=== PATIENT | female | born 1945 | race African-American/Black ===

== ENCOUNTER 2017-01-01 13:22 | Emergency (ER) | payer MEDICARE ==
[~2017-01-01] VITALS: Ht 157.5 cm; Wt 65.8 kg
[~2017-01-01 13:22] MED LIST: ACET-704 PO; AMLO5TAB2 PO; ASPI81TA2 PO; CHOL500021 PO; CILO100T PO; CLOP75TA PO; LOSA100T6 PO; MELO-150 PO; METO50TA2 PO; OMEP20CA9 PO; POTA10TA5 PO; PRED20TA PO
[2017-01-01 13:30] VITALS: BP 122/59
[2017-01-01] MEDS ORDERED: DEXAMETHASONE SOD PHOS 20 MG/5 ML VIAL. IV ONE (14:15)
[2017-01-01] MEDS ORDERED: METH4TAB2 PO (14:16)
--- NOTE | 2017-01-01 14:17 | PHYS DOC ---
Past Medical History Past Medical History: CAD, Diverticulitis, Hypertension Additional Past Medical Histor: aortic aneurysm Past Surgical History: Coronary Bypass Surgery, Other Additional Past Surgical Histo: cardiac stent; Lt SFA; SMA endovascular sx Alcohol Use: None Drug Use: None Adult General Chief Complaint Chief Complaint: HIP PAIN HPI HPI Patient is a 71 year old male who presents with history of hypertension, diverticulitis, and CAD who presents today with right hip pain radiating to the right lower extremity. She states she has history of sciatica. She states she was seen by the PCP and the given a muscle relaxer. She states is not helping. Patient denies any injury. Patient denies any numbness or tingling to bilateral lower extremities. Denies any loss of bowel bladder function. Review of Systems Review of Systems Constitutional: Denies fever or chills [] Eyes: Denies change in visual acuity, redness, or eye pain [] HENT: Denies nasal congestion or sore throat [] GI: Denies abdominal pain, nausea, vomiting, bloody stools or diarrhea [] : Denies dysuria or hematuria [] Musculoskeletal: Right hip pain radiating to the right lower extremity Integument: Denies rash or skin lesions [] Neurologic: Denies headache, focal weakness or sensory changes [] Endocrine: Denies polyuria or polydipsia [] Allergies Allergies Allergies Coded Allergies Type Severity Reaction Last Updated Verified clonidine Allergy Mild Rash 05/13/15 Yes morphine Adverse Reaction Intermediate N/V 01/21/16 Yes tramadol HCl Adverse Reaction Intermediate confusion 01/21/16 Yes nitroglycerin Adverse Reaction Mild severe MOLINA 01/21/16 Yes oxycodone Adverse Reaction Mild Nausea and Vomiting 01/21/16 Yes Physical Exam Physical Exam Constitutional: Well developed, well nourished, no acute distress, non-toxic appearance. [] HENT: Normocephalic, atraumatic, bilateral external ears normal, oropharynx moist, no oral exudates, nose normal. [] Eyes: PERRLA, EOMI, conjunctiva normal, no discharge. [] Abdomen: Bowel sounds normal, soft, no tenderness, no masses, no pulsatile masses. [] Skin: Warm, dry, no erythema, no rash. [] Back: Tenderness on the right SI joint, no midline lumbar spine tenderness, no CVA tenderness. [] Extremities: No tenderness, no cyanosis, no clubbing, ROM intact, no edema. [] Neurologic: Alert and oriented X 3, normal motor function, normal sensory function, no focal deficits noted. [] Psychologic: Affect normal, judgement normal, mood normal. [] Current Patient Data Vital Signs Vital Signs Date Time Temp Pulse Resp B/P (MAP) Pulse Ox O2 Delivery O2 Flow Rate FiO2 01/01/17 13:30 97.8 61 16 100 Room Air 97.8 EKG EKG [] Radiology/Procedures Radiology/Procedures [] Course & Med Decision Making Course & Med Decision Making Pertinent Labs and Imaging studies reviewed. (See chart for details) Patient is in the ED with pain suspicious of sciatica. She has already been seen by the PCP and diagnosed with sciatica. She is on a muscle relaxer which is not helping. She is allergic to multiple medications including morphine and oxycodone and tramadol. She was given Decadron in the ED and discharged with Medrol Dosepak. Follow-up with her own PCP next week. Dragon Disclaimer Dragon Disclaimer This electronic medical record was generated, in whole or in part, using a voice recognition dictation system. Departure Departure Impression: Primary Impression: Sciatic leg pain Disposition: HOME, SELF-CARE Condition: STABLE Referrals: ALIE CHE MD (PCP) Follow-up with your doctor next week Patient Instructions: Sciatica, [id number] Additional Instructions: You were seen for sciatic nerve pain, take the prescribed medicines as ordered. Follow-up with your own doctor in one week. Scripts Methylprednisolone (MEDROL) 4 Mg Tab.ds.pk 1 PKG PO UD, #1 PKG Prov: RAHULEMMASIMI TWISTING FRAME FIXER 01/01/17 RAHULEMMASIMI TWISTING FRAME FIXER January 01, 2017 14:17
[2017-01-01] MEDS ORDERED: DEXAMETHASONE SOD PHOS 20 MG/5 ML VIAL. IM ONE (14:30)
== END 2017-01-01 14:30 | disposition home or self-care (01) ==
LOC: ER 13:22
DX: M54.31 Sciatica, right side (principal); I10 Essential (primary) hypertension; I25.10 Atherosclerotic heart disease of native coronary artery without angina pectoris; I71.9 Aortic aneurysm of unspecified site, without rupture; Z95.5 Presence of coronary angioplasty implant and graft; Z88.8 Allergy status to other drugs, medicaments and biological substances; Z88.5 Allergy status to narcotic agent
CPT/HCPCS: 96372; 99283; J1100

== ENCOUNTER 2017-01-24 10:13 | Emergency (ER) | payer MEDICARE ==
[~2017-01-24] VITALS: Ht 157.5 cm; Wt 65.8 kg
[~2017-01-24 10:13] MED LIST changes: +METH4TAB2 PO
--- NOTE | 2017-01-24 11:22 | PHYS DOC ---
Past Medical History Past Medical History: CAD, Diverticulitis, Hypertension Additional Past Medical Histor: aortic aneurysm Past Surgical History: Coronary Bypass Surgery, Other Additional Past Surgical Histo: cardiac stent; Lt SFA; SMA endovascular sx Alcohol Use: None Drug Use: None Adult General Chief Complaint Chief Complaint: UPPER EXTREMITY PAIN [facility] HPI Patient is a 71 year old female presents to the emergency department stating that 8 years ago today she suffered her first heart attack and had a CABG completed. Patient states that she is here to have her insulin signs checked. She is complaining of bilateral pain and states that it's a dull pain. She then states that she is having right upper chest pain and discomfort with radiation into the elbows. She states the pain is dull she has taken Daypro further pain and discomfort which is relieved some of the pain. She states the pain started approximately 2 days ago when she was outside gardening. She denies any shortness of air difficulty breathing. She denies any swelling in her lower extremities. Patient states that she does have rating specialist Dr. Marino in which she has seen a few days ago. Review of Systems Review of Systems Constitutional: Denies fever or chills [] Eyes: Denies change in visual acuity, redness, or eye pain [] HENT: Denies nasal congestion or sore throat [] Respiratory: Denies cough or shortness of breath [] Cardiovascular: No additional information not addressed in HPI [] GI: Denies abdominal pain, nausea, vomiting, bloody stools or diarrhea [] : Denies dysuria or hematuria [] Musculoskeletal: Denies back pain. C/o bilateral elbow pain Integument: Denies rash or skin lesions [] Neurologic: Denies headache, focal weakness or sensory changes [] Endocrine: Denies polyuria or polydipsia [] Allergies Allergies Allergies Coded Allergies Type Severity Reaction Last Updated Verified clonidine Allergy Mild Rash 05/13/15 Yes morphine Adverse Reaction Intermediate N/V 01/21/16 Yes tramadol HCl Adverse Reaction Intermediate confusion 01/21/16 Yes nitroglycerin Adverse Reaction Mild severe MOLINA 01/21/16 Yes oxycodone Adverse Reaction Mild Nausea and Vomiting 01/21/16 Yes Physical Exam Physical Exam Constitutional: Well developed, well nourished, no acute distress, non-toxic appearance. [] HENT: Normocephalic, atraumatic, bilateral external ears normal, oropharynx moist, no oral exudates, nose normal. [] Eyes: PERRLA, EOMI, conjunctiva normal, no discharge. [] Neck: Normal range of motion, no tenderness, supple, no stridor. [] Cardiovascular:Heart rate regular rhythm, no murmur [] Lungs & Thorax: Bilateral breath sounds clear to auscultation [] Skin: Warm, dry, no erythema, no rash. [] Back: No tenderness Extremities: Bilateral elbow tenderness, no cyanosis, no clubbing, ROM intact, no edema. Peripheral pulses plus cap refill brisk less than 2 seconds. Patient with full range of motion of the elbow areas. No discoloration or bruising noted. Neurologic: Alert and oriented X 3, normal motor function, normal sensory function, no focal deficits noted. [] Psychologic: Affect normal, judgement normal, mood normal. [] Current Patient Data Vital Signs Vital Signs Date Time Temp Pulse Resp B/P (MAP) Pulse Ox O2 Delivery O2 Flow Rate FiO2 01/24/17 10:26 98.6 54 20 164/73 (103) 98 Room Air 98.6 Lab Values Laboratory Tests Test 01/24/17 12:00 White Blood Count 7.3 x10^3/uL (4.0-11.0) Red Blood Count 3.67 x10^6/uL (3.50-5.40) Hemoglobin 11.4 g/dL (12.0-15.5) L Hematocrit 33.9 % (36.0-47.0) L Mean Corpuscular Volume 92 fL (79-100) Mean Corpuscular Hemoglobin 31 pg (25-35) Mean Corpuscular Hemoglobin Concent 34 g/dL (31-37) Red Cell Distribution Width 14.7 % (11.5-14.5) H Platelet Count 238 x10^3/uL (140-400) Neutrophils (%) (Auto) 61 % (31-73) Lymphocytes (%) (Auto) 30 % (24-48) Monocytes (%) (Auto) 6 % (0-9) Eosinophils (%) (Auto) 2 % (0-3) Basophils (%) (Auto) 1 % (0-3) Neutrophils # (Auto) 4.4 x10^3uL (1.8-7.7) Lymphocytes # (Auto) 2.2 x10^3/uL (1.0-4.8) Monocytes # (Auto) 0.5 x10^3/uL (0.0-1.1) Eosinophils # (Auto) 0.2 x10^3/uL (0.0-0.7) Basophils # (Auto) 0.0 x10^3/uL (0.0-0.2) Sodium Level 140 mmol/L (136-145) Potassium Level 5.4 mmol/L (3.5-5.1) H Chloride Level 105 mmol/L (98-107) Carbon Dioxide Level 24 mmol/L (21-32) Anion Gap 11 (6-14) Blood Urea Nitrogen 15 mg/dL (7-20) Creatinine 1.3 mg/dL (0.6-1.0) H Estimated GFR (Cockcroft-Gault) 49.0 BUN/Creatinine Ratio 12 (6-20) Glucose Level 91 mg/dL (70-99) Calcium Level 9.3 mg/dL (8.5-10.1) Total Bilirubin 0.4 mg/dL (0.2-1.0) Aspartate Amino Transferase (AST) 12 U/L (15-37) L Alanine Aminotransferase (ALT) 13 U/L (14-59) L Alkaline Phosphatase 74 U/L (46-116) Creatine Kinase 35 U/L (26-192) Creatine Kinase MB (Mass) < 0.5 ng/mL (0.0-3.6) Creatine Kinase MB Relative Index % (0-4) Troponin I Quantitative 0.048 ng/mL (0.000-0.055) Total Protein 7.5 g/dL (6.4-8.2) Albumin 3.1 g/dL (3.4-5.0) L Albumin/Globulin Ratio 0.7 (1.0-1.7) L Laboratory Tests 01/24/17 12:00 Laboratory Tests 01/24/17 12:00 EKG EKG EKG completed with a heart rate of 62 sinus rhythm noted no STEMI noted per Dr. Vazquez. [] Radiology/Procedures Radiology/Procedures [][facility] [address] [place], [place] [id number] IMAGING REPORT Signed PATIENT: DANY ARCINIEGA ACCOUNT: [id number] : 1945 LOCATION: ER AGE: 71 SEX: F EXAM STATUS: REG ER ORD. PHYSICIAN: JOSE DOUGHERTY APRN REASON: chest pain PROCEDURE: PORTABLE CHEST 1V Portable AP chest. History: Chest pain previous bypass, hypertension AP view was taken of the chest. The heart within normal limits in size with evidence of prior bypass. There is no pleural effusion. There is mild interstitial prominence the lung bases without change from the old studies possibly fibrosis. There are no acute infiltrates. Impression: 1. No acute infiltrates. DICTATED and SIGNED BY: BOBY KIM MD DATE: 01/24/17 1142 CC: JOSE DOUGHERTY APRN; ALIE CHE MD ~ Course & Med Decision Making Course & Med Decision Making Pertinent Labs and Imaging studies reviewed. (See chart for details) CBC, CMP, troponin, CK MB, EKG, chest x-ray within normal limits. Spoke with Dr. Marino in regards to the patient presenting here today. He asked that the patient follow-up with him later in the week. Patient will be discharged home in stable condition. Recommended patient to continue to take the Daypro for pain and discomfort. Signs and symptoms to return back to emergency department been provided. Patient agrees with discharge instructions treatment regimens and follow-up recommendations. [] Dragon Disclaimer Dragon Disclaimer This electronic medical record was generated, in whole or in part, using a voice recognition dictation system. Departure Departure Impression: Primary Impression: Chest wall pain Additional Impression: Bilateral elbow joint pain Disposition: 01 HOME, SELF-CARE Condition: STABLE Referrals: ALIE CHE MD (PCP) Patient Instructions: Chest Wall Pain, [id number], Joint Sprain Additional Instructions: Your lab results, EKG results and x-ray results were negative. Your be treated for chest wall pain and bilateral elbow pain. Continue using her Daypro at home for pain and discomfort. Warm moist packs to your chest wall area for comfort. You may try ice packs to your elbows on 20 minutes off 20 minutes several times a day. Follow-up with Dr. Wells in 3-5 days. Return back to emergency department for signs and symptoms of become worse. Problem Qualifiers JOSE DOUGHERTY APRN January 24, 2017 11:22
--- NOTE | 2017-01-24 11:37 | EKG ---
[facility] [address] [place] [address] Test Date: 2017-01-24 Test Time: 11:04:59 Pat Name: DANY ARCINIEGA Department: Room: Gender: F [employer] Illustrator: : 1945 Requested By: JOSE DOUGHERTY Order Number: [id number] Reading MD: Francis Decker Measurements Intervals [place] Rate: 62 P: MS: QRS: -12 QRSD: 114 T: 5 QT: 448 QTc: 457 Interpretive Statements SINUS RHYTHM LEFTWARD AXIS INCOMPLETE RIGHT BUNDLE BRANCH BLOCK Electronically Signed On 01-25-2017 10:35:58 CDT by Francis Decker
--- NOTE | 2017-01-24 11:46 | RAD ---
Portable AP chest. History: Chest pain previous bypass, hypertension AP view was taken of the chest. The heart within normal limits in size with evidence of prior bypass. There is no pleural effusion. There is mild interstitial prominence the lung bases without change from the old studies possibly fibrosis. There are no acute infiltrates. Impression: 1. No acute infiltrates.
[2017-01-24 12:07] LABS: BASO % 1 % (0-3); EOS % 2 % (0-3); HEMATOCRIT 33.9 % (36.0-47.0); HEMOGLOBIN 11.4 g/dL (12.0-15.5); LYMPH # 2.2 x10^3/uL (1.0-4.8); LYMPH % 30 % (24-48); MEAN CORPUSCULAR HEMOGLOBIN 31 pg (25-35); MEAN CORPUSCULAR HGB CONC 34 g/dL (31-37); MEAN CORPUSCULAR VOLUME 92 fL (79-100); MONO % 6 % (0-9); NEUT % 61 % (31-73); PLATELET COUNT 238 x10^3/uL (140-400); RED BLOOD COUNT 3.67 x10^6/uL (3.50-5.40); RED CELL DISTRIBUTION WIDTH 14.7 % (11.5-14.5); WHITE BLOOD COUNT 7.3 x10^3/uL (4.0-11.0)
[2017-01-24 12:19] LABS: CALCIUM 9.3 mg/dL (8.5-10.1); CREATININE 1.3 mg/dL (0.6-1.0); POTASSIUM 5.4 mmol/L (3.5-5.1)
[2017-01-24 12:24] LABS: ALBUMIN 3.1 g/dL (3.4-5.0); ALBUMIN/GLOBULIN RATIO 0.7 (1.0-1.7); TOTAL BILIRUBIN 0.4 mg/dL (0.2-1.0); TOTAL PROTEIN 7.5 g/dL (6.4-8.2)
[2017-01-24 12:36] VITALS: BP 158/79
[2017-01-24 12:36] LABS: CREATINE KINASE 35 U/L (26-192)
[2017-01-24 12:37] LABS: CKMB MASS < 0.5 ng/mL (0.0-3.6)
== END 2017-01-24 13:03 | disposition home or self-care (01) ==
LOC: ER 10:13
DX: R07.89 Other chest pain (principal); M25.522 Pain in left elbow; M25.521 Pain in right elbow; M25.511 Pain in right shoulder; I25.10 Atherosclerotic heart disease of native coronary artery without angina pectoris; I10 Essential (primary) hypertension; Z95.5 Presence of coronary angioplasty implant and graft; Z95.1 Presence of aortocoronary bypass graft; Z88.5 Allergy status to narcotic agent; Z88.6 Allergy status to analgesic agent; Z88.8 Allergy status to other drugs, medicaments and biological substances
CPT/HCPCS: 36415; 71010; 80053; 82553; 84484; 85027; 93005; 99285-25

== ENCOUNTER → 2017-04-18 | Outpatient (CLI) | payer MEDICARE ==
[~2017-04-18] MED LIST changes: +ASPI-630 PO; -ASPI81TA2 PO; +CONTRAST GIVEN MC PRN; +IOHEXOL 350 MG/ML 100 ML VIAL. IV ONE; -MELO-150 PO; +MELO15TA23 PO
[2017-04-18 08:11] LABS: CREATININE 1.3 mg/dL (0.6-1.0)
--- NOTE | 2017-04-18 13:31 | RAD ---
CT abdomen and pelvis Indication: 71-year-old female with abdominal aortic aneurysm without rupture. Follow-up study. Technique: CT angiogram of the abdomen and pelvis without and with 75 mL of Omnipaque 350 with multiplane are reformatted. Comparison: Prior study from 01/21/16. Findings: Heart is normal in size. No pericardial or pleural effusion. Heavily calcified mitral valve noted. Reticular opacities seen within the lung bases with bronchiectasis. Redemonstrated is aneurysmal dilation of the abdominal aorta with circumferential mural plaque and calcified outer wall. The maximum dimension measures 5.2 x 5.5 x 9.7 cm (AP, transverse, cc), previously 5.1 x 5.4 x 9.7 cm. Stable discontinuity in the calcified outer wall is seen in the right posterolateral aspect (series 2 image 86). There is no periaortic high attenuation to suggest leak. The aneurysm extends to the level of bifurcation. The celiac axis is patent with small amount of atherosclerotic disease at the ostia. The proximal SMA stent graft noted. The bilateral renal arteries are patent with moderate atherosclerotic disease at the takeoff. The right common iliac artery measures 1.7 cm in diameter, previously same. The left common iliac artery measures 1.7 cm in diameter, previously 1.7 cm. Moderate atherosclerotic disease of the bilateral common iliac arteries with severe disease in the bilateral external/internal iliac arteries Multiple calcifications in the spleen suggesting healed granulomatous disease. Liver within normal limits. No radiopaque gallstones. Pancreas is within normal limits. Diffuse bilateral thickening of the adrenal glands likely adenomatous hyperplasia. No bowel obstruction. Descending and sigmoid colon diverticulosis. Uterus is present and is anteverted with calcified fibroids. Bladder is within normal limits. No abdominal or pelvic adenopathy. Small omental fat containing umbilical hernia. No suspicious bony lesions. Impression: 1. Stable abdominal aortic aneurysm when compared to prior study from 01/21/2016. 2. 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 3. Diverticulosis of the descending and sigmoid colon without diverticulitis.
== END | disposition home or self-care (01) ==
LOC: CT 14:37
PROVIDERS: ATTEND Registered Nurse Medical-Surgical
DX: I71.4 Abdominal aortic aneurysm, without rupture (principal); K57.30 Diverticulosis of large intestine without perforation or abscess without bleeding
CPT/HCPCS: 36415; 74174; 82565; Q9967

== ENCOUNTER → 2017-05-06 | Day surgery (SDC) | payer MEDICARE ==
[~2017-05-06] MED LIST changes: -CONTRAST GIVEN MC PRN; -IOHEXOL 350 MG/ML 100 ML VIAL. IV ONE; +IV RINGERS,LACTATED 1000ML 1,000 ML IV SCH; +LIDOCAINE 2% PF Vial for OR 5 ML VIAL. ONE; +PROPOFOL 20 ML IV ONE
[2017-05-06 08:52] VITALS: BP 145/64
--- NOTE | 2017-05-06 10:15 | HP ---
ADMIT DATE: 05/06/2017 REFERRING PHYSICIAN: Chichi Riojas MD. REASON: History of colonic polyps. HISTORY OF PRESENT ILLNESS: A 71-year-old female whose past medical history is significant for organic heart disease, hypertension, CA as well as diverticulosis and history of abdominal aortic aneurysm. She was seen for a screening colon exam. She has a history of colonic polyps with her last exam been in 2010. Denies any change in bowel habits at this time with diarrhea, constipation. There is no melena and/or hematochezia. Weight and appetite have been stable. She is otherwise without additional complaints. PAST MEDICAL HISTORY: Organic heart disease, hypertension, status post CA, arthritis, gastroesophageal reflux disease, history of colonic polyps, history of diverticular disease. ALLERGIES: Include CLONIDINE, MORPHINE, NITROGLYCERIN, OXYCODONE, TRAMADOL. MEDICATIONS: Include Tylenol, amlodipine, aspirin, vitamin D3, Plavix, losartan, meloxicam, metoprolol, omeprazole, potassium chloride. FAMILY AND SOCIAL HISTORY: She is , is a smoker, nondrinker. PAST SURGICAL HISTORY: Status post bypass surgery, status post tubal ligation. REVIEW OF SYSTEMS: Per records. PHYSICAL EXAMINATION: GENERAL: Reveals a thin female. VITAL SIGNS: Temperature is 97.3, pulse 60, respirations 18. HEENT: Reveals normocephalic and atraumatic head. Pupils and extraocular muscles not tested. Sclerae anicteric. NECK: Supple. LUNGS: Clear. CARDIOVASCULAR: Reveals S1, S2 without S3, S4 or appreciable murmur. A well-healed midline sternal incision. ABDOMEN: Soft abdomen, normal bowel sounds, without appreciable hepatosplenomegaly. EXTREMITIES: Reveals no cyanosis, clubbing or edema. IMPRESSION AND PLAN: Colorectal screening. History of colonic polyps. Surveillance exam is warranted at this time. Risks and benefits of procedure including risk of perforation requiring operation have been discussed. The patient is willing to proceed. YVON LABOY MD DR: CARIN/paola JOB#: [id number] / [id number]
== END | disposition home or self-care (01) ==
LOC: ENDOS 07:21
PROVIDERS: ATTEND Internal Medicine Gastroenterology
DX: Z09 Encounter for follow-up examination after completed treatment for conditions other than malignant neoplasm (principal); Z86.010 Personal history of colon polyps; K64.0 First degree hemorrhoids; K57.30 Diverticulosis of large intestine without perforation or abscess without bleeding; I25.10 Atherosclerotic heart disease of native coronary artery without angina pectoris; E78.00 Pure hypercholesterolemia, unspecified; I10 Essential (primary) hypertension; J44.9 Chronic obstructive pulmonary disease, unspecified; Z98.51 Tubal ligation status; Z72.0 Tobacco use; Z88.6 Allergy status to analgesic agent; Z88.8 Allergy status to other drugs, medicaments and biological substances
CPT/HCPCS: G0105; J2704; J2001

== ENCOUNTER 2017-08-04 07:49 | Emergency (ER) | payer MEDICARE ==
[~2017-08-04] VITALS: Ht 162.6 cm; Wt 67.6 kg
[~2017-08-04 07:49] MED LIST changes: -IV RINGERS,LACTATED 1000ML 1,000 ML IV SCH; -LIDOCAINE 2% PF Vial for OR 5 ML VIAL. ONE; -METO50TA2 PO; +METO50TA6 PO; -PROPOFOL 20 ML IV ONE
--- NOTE | 2017-08-04 08:02 | EKG ---
[facility] [address] [place] [address] Test Date: 2017-08-04 Test Time: 07:59:42 Pat Name: DANY ARCINIEGA Department: Room: Gender: F [employer]ber: : 1945 Requested By: IZZY BANDA Order Number: [id number] Reading MD: Measurements Intervals [place] Rate: 62 P: 54 MN: 172 QRS: -13 QRSD: 108 T: 9 QT: 424 QTc: 437 Interpretive Statements SINUS RHYTHM LEFTWARD AXIS INCOMPLETE RIGHT BUNDLE BRANCH BLOCK OTHERWISE NORMAL ECG No previous ECG available for comparison
[2017-08-04 08:17] LABS: BASO # 0.1 x10^3/uL (0.0-0.2); BASO % 1 % (0-3); EOS % 2 % (0-3); HEMATOCRIT 40.1 % (36.0-47.0); HEMOGLOBIN 13.1 g/dL (12.0-15.5); LYMPH # 2.6 x10^3/uL (1.0-4.8); LYMPH % 29 % (24-48); MEAN CORPUSCULAR HEMOGLOBIN 30 pg (25-35); MEAN CORPUSCULAR HGB CONC 33 g/dL (31-37); MEAN CORPUSCULAR VOLUME 93 fL (79-100); MONO % 7 % (0-9); NEUT % 61 % (31-73); PLATELET COUNT 233 x10^3/uL (140-400); RED CELL DISTRIBUTION WIDTH 16.1 % (11.5-14.5); WHITE BLOOD COUNT 8.9 x10^3/uL (4.0-11.0)
--- NOTE | 2017-08-04 08:22 | RAD ---
Portable chest, 08/04/2017: History: Chest pain Comparison is made to a study from 01/24/2017. There has been a previous median sternotomy. The heart size and pulmonary vascularity are normal. There is calcific plaquing of the aorta. There is a calcified granuloma in the left upper lobe. Minimal basilar interstitial prominence is unchanged. No pulmonary consolidation is seen. There is no evidence of pleural fluid. IMPRESSION: 1. Minimal basilar interstitial prominence is unchanged, likely due to fibrosis. 2. No acute cardiopulmonary abnormality is detected.
[2017-08-04 08:27] LABS: INR 1.1 (0.8-1.1); PROTHROMBIN TIME PATIENT 13.2 SEC (11.7-14.0)
[2017-08-04] MEDS ORDERED: ASPIRIN 325 MG TABLET PO ONE (08:30)
[2017-08-04 08:41] LABS: CALCIUM 9.6 mg/dL (8.5-10.1); CREATININE 1.2 mg/dL (0.6-1.0); GFR 53.6; POTASSIUM 3.2 mmol/L (3.5-5.1)
--- NOTE | 2017-08-04 08:44 | PHYS DOC ---
Past Medical History Past Medical History: CAD, Diverticulitis, Hypertension Additional Past Medical Histor: aortic aneurysm Past Surgical History: Coronary Bypass Surgery, Other Additional Past Surgical Histo: cardiac stent; Lt SFA; SMA endovascular sx Alcohol Use: None Drug Use: None Adult General Chief Complaint Chief Complaint: CHEST PAIN HPI HPI Patient is a 72 year old female who presents with chest pain upon waking, bilateral upper chest and shoulders. She states that lasted 15-20 minutes, denies associated diaphoresis or shortness of breath. She didn't take anything to make the pain go away. Patient attributes her symptoms to "doing too much". She stated she was cleaning her house heavily yesterday as well as putting up [employer] decorations. She believes that she took her blood pressure medication this morning but is uncertain. She normally takes 81 mg aspirin at night. She does have a history of coronary artery disease and states that "I just come in every time this happens to get my enzymes checked". His vision is Dr. 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 She denies recent cough or fevers, no history of PE or DVT reported Review of Systems Review of Systems Constitutional: Denies fever or chills [] Eyes: Denies change in visual acuity, redness, or eye pain [] HENT: Denies nasal congestion or sore throat [] Respiratory: Denies cough or shortness of breath [] Cardiovascular: No additional information not addressed in HPI [] GI: Denies abdominal pain, nausea, vomiting, bloody stools or diarrhea [] : Denies dysuria or hematuria [] Musculoskeletal: Denies back pain or joint pain [] Integument: Denies rash or skin lesions [] Neurologic: Denies headache, focal weakness or sensory changes [] Current Medications Current Medications Current Medications Medications (Trade) Dose Ordered Sig/[facility] Start Time Stop Time Status Last Admin Dose Admin Aspirin (Wendie Aspirin) 325 mg 1X ONCE 08/04/17 08:30 08/04/17 08:31 DC 08/04/17 08:23 325 MG Allergies Allergies Allergies Coded Allergies Type Severity Reaction Last Updated Verified clonidine Allergy Mild Rash 05/06/17 Yes morphine Adverse Reaction Intermediate N/V 05/06/17 Yes tramadol HCl Adverse Reaction Intermediate confusion 05/06/17 Yes nitroglycerin Adverse Reaction Mild severe MOLINA 05/06/17 Yes oxycodone Adverse Reaction Mild Nausea and Vomiting 05/06/17 Yes Physical Exam Physical Exam Constitutional: Well developed, well nourished, no acute distress, non-toxic appearance. [] HENT: Normocephalic, atraumatic, bilateral external ears normal, oropharynx moist, no oral exudates, nose normal. [] Eyes: PERRLA, EOMI, conjunctiva normal, no discharge. [] Neck: Normal range of motion, no tenderness, supple, no stridor. [] Cardiovascular:Heart rate regular with regular rhythm, systolic murmur [] Lungs & Thorax: Bilateral breath sounds clear to auscultation, no wheeze, nontender to palpation Abdomen: Bowel sounds normal, soft, no tenderness, no masses, no pulsatile masses. [] Skin: Warm, dry, no erythema, no rash. [] Back: No tenderness, no CVA tenderness. [] Extremities: No tenderness, no cyanosis, no clubbing, ROM intact, no edema. [] Neurologic: Alert and oriented X 3, normal motor function, normal sensory function, no focal deficits noted. [] Psychologic: Affect normal, judgement normal, mood normal. [] Current Patient Data Vital Signs Vital Signs Date Time Temp Pulse Resp B/P (MAP) Pulse Ox O2 Delivery O2 Flow Rate FiO2 08/04/17 11:26 64 23 171/76 (107) 98 Room Air 08/04/17 07:55 97.9 97.9 Lab Values Laboratory Tests Test 08/04/17 08:05 08/04/17 10:55 White Blood Count 8.9 x10^3/uL (4.0-11.0) Red Blood Count 4.30 x10^6/uL (3.50-5.40) Hemoglobin 13.1 g/dL (12.0-15.5) Hematocrit 40.1 % (36.0-47.0) Mean Corpuscular Volume 93 fL (79-100) Mean Corpuscular Hemoglobin 30 pg (25-35) Mean Corpuscular Hemoglobin Concent 33 g/dL (31-37) Red Cell Distribution Width 16.1 % (11.5-14.5) H Platelet Count 233 x10^3/uL (140-400) Neutrophils (%) (Auto) 61 % (31-73) Lymphocytes (%) (Auto) 29 % (24-48) Monocytes (%) (Auto) 7 % (0-9) Eosinophils (%) (Auto) 2 % (0-3) Basophils (%) (Auto) 1 % (0-3) Neutrophils # (Auto) 5.5 x10^3uL (1.8-7.7) Lymphocytes # (Auto) 2.6 x10^3/uL (1.0-4.8) Monocytes # (Auto) 0.6 x10^3/uL (0.0-1.1) Eosinophils # (Auto) 0.2 x10^3/uL (0.0-0.7) Basophils # (Auto) 0.1 x10^3/uL (0.0-0.2) Prothrombin Time 13.2 SEC (11.7-14.0) Prothrombin Time INR 1.1 (0.8-1.1) Sodium Level 140 mmol/L (136-145) Potassium Level 3.2 mmol/L (3.5-5.1) L Chloride Level 101 mmol/L (98-107) Carbon Dioxide Level 24 mmol/L (21-32) Anion Gap 15 (6-14) H Blood Urea Nitrogen 13 mg/dL (7-20) Creatinine 1.2 mg/dL (0.6-1.0) H Estimated GFR (Cockcroft-Gault) 53.6 BUN/Creatinine Ratio 11 (6-20) Glucose Level 90 mg/dL (70-99) Calcium Level 9.6 mg/dL (8.5-10.1) Magnesium Level 1.9 mg/dL (1.8-2.4) Total Bilirubin 0.4 mg/dL (0.2-1.0) Aspartate Amino Transferase (AST) 15 U/L (15-37) Alanine Aminotransferase (ALT) 11 U/L (14-59) L Alkaline Phosphatase 89 U/L (46-116) Troponin I Quantitative 0.069 ng/mL (0.000-0.055) 0.071 ng/mL (0.000-0.055) AS-Xwe-Z-Type Natriuretic Peptide 586 pg/mL (0-124) H Total Protein 8.6 g/dL (6.4-8.2) H Albumin 3.9 g/dL (3.4-5.0) Albumin/Globulin Ratio 0.8 (1.0-1.7) L Laboratory Tests 08/04/17 08:05 Laboratory Tests 08/04/17 08:05 EKG EKG 63 bpm, sinus, leftward axis, no acute ST elevation or depression, T-wave inversion in V3 only, no significant change appreciated since comparison on 01/24, interpreted by me. youth nutritional monitor 59 bpm, sinus, no dysrhythmia appreciated, interpreted by me. Radiology/Procedures Radiology/Procedures CXR: IMPRESSION: 1. Minimal basilar interstitial prominence is unchanged, likely due to fibrosis. 2. No acute cardiopulmonary abnormality is detected. Course & Med Decision Making Course & Med Decision Making Pertinent Labs and Imaging studies reviewed. (See chart for details) Pt without symptoms at this time. Pt has risk factors, bloo pressure is elevated, improved to 156/80 without intervention. I counseled pt to stop smoking. initial troponin is slightly elevated, however this is normal for the pt. Contacted Dr. Moreno for recommendations. He recommended repeat trop at 6 hours. This was essentially unchanged and Dr. Moreno recommended dc home with close follow-up with him. Pt agreeable to plan and understands strict return precautions. Dragon Disclaimer Dragon Disclaimer This electronic medical record was generated, in whole or in part, using a voice recognition dictation system. Departure Departure Impression: Primary Impression: Chest pain Disposition: HOME, SELF-CARE Condition: IMPROVED Referrals: ALIE CHE MD (PCP) IZZY BANDA MD Aug 04, 2017 08:44
[2017-08-04 08:47] LABS: ALBUMIN 3.9 g/dL (3.4-5.0); ALBUMIN/GLOBULIN RATIO 0.8 (1.0-1.7); MAGNESIUM 1.9 mg/dL (1.8-2.4); TOTAL BILIRUBIN 0.4 mg/dL (0.2-1.0); TOTAL PROTEIN 8.6 g/dL (6.4-8.2)
[2017-08-04 11:26] VITALS: BP 171/76
== END 2017-08-04 11:35 | disposition home or self-care (01) ==
LOC: ER 07:49
DX: R07.89 Other chest pain (principal); I10 Essential (primary) hypertension; I25.10 Atherosclerotic heart disease of native coronary artery without angina pectoris; Z95.5 Presence of coronary angioplasty implant and graft; Z79.82 Long term (current) use of aspirin; Z88.5 Allergy status to narcotic agent; Z88.6 Allergy status to analgesic agent; Z88.8 Allergy status to other drugs, medicaments and biological substances
CPT/HCPCS: 36415; 71010; 80053; 83735; 83880; 84484; 85025; 85610; 93005; 99285-25

== ENCOUNTER → 2017-12-20 | Outpatient (CLI) | payer MEDICARE ==
[2017-12-20] MEDS: REGADENOSON 0.4 MG/5 ML DISP.SYRIN. IV (10:02)
== END | disposition home or self-care (01) ==
LOC: NM 08:01
DX: Z01.810 Encounter for preprocedural cardiovascular examination (principal); I25.10 Atherosclerotic heart disease of native coronary artery without angina pectoris; I73.9 Peripheral vascular disease, unspecified; I10 Essential (primary) hypertension; Z95.1 Presence of aortocoronary bypass graft; Z87.891 Personal history of nicotine dependence
CPT/HCPCS: 78452; 93017; 96374; 96375; 96376; A9500; J2785

== ENCOUNTER 2018-01-06 05:39 | Inpatient (IN) | payer MEDICARE ==
[2018-01-06] MEDS: HEPARIN SODIUM 5,000 UNIT in IV NORMAL SALINE 500ML BAG 500 ML IRR (06:00)
[2018-01-06] MEDS ORDERED: SURGICEL FIBRILLAR 1X2 EACH. ×2 (06:16→09:49)
[2018-01-06] MEDS: IV RINGERS,LACTATED 1000ML 1,000 ML IV (06:28)
[2018-01-06 06:33] LABS: ADD MAN DIFF? NO
[2018-01-06 06:42] LABS: BASO # 0.1 x10^3/uL (0.0-0.2); BASO % 1 % (0-3); EOS # 0.2 x10^3/uL (0.0-0.7); EOS % 2 % (0-3); HEMOGLOBIN 11.6 g/dL (12.0-15.5); LYMPH # 2.2 x10^3/uL (1.0-4.8); LYMPH % 30 % (24-48); MEAN CORPUSCULAR HEMOGLOBIN 29 pg (25-35); MEAN CORPUSCULAR HGB CONC 33 g/dL (31-37); MEAN CORPUSCULAR VOLUME 86 fL (79-100); MONO # 0.4 x10^3/uL (0.0-1.1); MONO % 6 % (0-9); NEUT # 4.5 x10^3uL (1.8-7.7); NEUT % 61 % (31-73); PLATELET COUNT 276 x10^3/uL (140-400); RED BLOOD COUNT 4.06 x10^6/uL (3.50-5.40); RED CELL DISTRIBUTION WIDTH 17.5 % (11.5-14.5); WHITE BLOOD COUNT 7.4 x10^3/uL (4.0-11.0)
[2018-01-06 06:44] LABS: ANION GAP 9 (6-14); BLOOD UREA NITROGEN 12 mg/dL (7-20); CALCIUM 9.6 mg/dL (8.5-10.1); CARBON DIOXIDE 25 mmol/L (21-32); CHLORIDE 108 mmol/L (98-107); CREATININE 1.2 mg/dL (0.6-1.0); GFR 53.6; GLUCOSE 96 mg/dL (70-99); POTASSIUM 4.2 mmol/L (3.5-5.1); SODIUM 142 mmol/L (136-145)
[2018-01-06 06:52] LABS: INR 1.2 (0.8-1.1); PARTIAL THROMBOPLASTIN TIME 34 SEC (24-38); PROTHROMBIN TIME PATIENT 14.4 SEC (11.7-14.0)
[2018-01-06] MEDS ORDERED: SEVOFLURANE > 120 MINUTES. IH (06:53)
[2018-01-06] MEDS ORDERED: fentaNYL PF VIAL 100 MCG/2 ML VIAL ×2 (06:54→09:49)
[2018-01-06] MEDS ORDERED: MIDAZOLAM HCL/PF 2 MG/2 ML VIAL. (06:54)
[2018-01-06] MEDS ORDERED: NEOSTIGMINE METHYLSULFATE 5 MG/5 ML SYRINGE. (06:55)
[2018-01-06] MEDS ORDERED: LIDOCAINE 2% PF Vial for OR 5 ML VIAL. (06:55)
[2018-01-06] MEDS ORDERED: PROPOFOL 20 ML IV (06:55)
[2018-01-06] MEDS ORDERED: DEXAMETHASONE SOD PHOS 20 MG/5 ML VIAL. (06:55)
[2018-01-06] MEDS ORDERED: ROCURONIUM 50 MG/5 ML VIAL. ×2 (06:55→08:28)
[2018-01-06] MEDS ORDERED: GLYCOPYRROLATE 1 MG/5 ML VIAL. (06:55)
[2018-01-06] MEDS ORDERED: ONDANSETRON PF 4 MG/2 ML VIAL. (06:55)
[2018-01-06] MEDS ORDERED: ONDANSETRON PF 4 MG/2 ML VIAL. IV ×2 (07:00→09:15)
[2018-01-06] MEDS ORDERED: fentaNYL PF VIAL 100 MCG/2 ML VIAL IV ×2 (07:00→09:15)
[2018-01-06] MEDS ORDERED: LIDOCAINE 1% PF 2 ML VIAL. ID (07:00)
[2018-01-06] MEDS ORDERED: IOHEXOL 240 MG/ML 50ML VIAL. (07:19)
[2018-01-06] MEDS ORDERED: IOHEXOL 240 MG/ML 100 ML VIAL. (07:19)
[2018-01-06] MEDS ORDERED: HEPARIN for IV BOLUS 10,000 UNIT/10 ML VIAL. (08:38)
[2018-01-06] MEDS ORDERED: diphenhydrAMINE HCL 25 MG CAPSULE PO (09:15)
[2018-01-06] MEDS ORDERED: NALOXONE 0.4 MG/ML VIAL. IV (09:15)
[2018-01-06] MEDS ORDERED: diphenhydrAMINE 50 MG/ML VIAL IV (09:15)
[2018-01-06] MEDS ORDERED: LABETALOL 20 MG/4 ML DISP.SYRIN. IVP (09:15)
[2018-01-06] MEDS ORDERED: 0.9 % SODIUM CHLORIDE 10 ML DISP.SYRIN. IV (09:15)
[2018-01-06] MEDS ORDERED: PROCHLORPERAZINE 10 MG/2 ML VIAL. IV (09:15)
[2018-01-06] MEDS ORDERED: hydrALAZINE 20 MG/ML VIAL. IVP (09:15)
[2018-01-06] MEDS: IOHEXOL 240 MG/ML 100 ML VIAL. INT ART ×2 (10:45→17:33)
[2018-01-06] MEDS ORDERED: hydrALAZINE 20 MG/ML VIAL. (10:45)
[2018-01-06] MEDS: IOHEXOL 240 MG/ML 50ML VIAL. IART (10:45)
[2018-01-06] MEDS ORDERED: PROTAMINE 50 MG/5 ML VIAL. IV (10:47)
[2018-01-06] MEDS ORDERED: ISOFLURANE 61 TO 120 MINUTES. IH (10:49)
[2018-01-06] MEDS ORDERED: LABETALOL 20 MG/4 ML DISP.SYRIN. (11:12)
[2018-01-06] MEDS: fentaNYL PF VIAL 100 MCG/2 ML VIAL IV ×3 (11:52→16:52)
[2018-01-06] MEDS: PROCHLORPERAZINE 10 MG/2 ML VIAL. IV (11:52)
[2018-01-06] MEDS: ACETAMINOPHEN 325 MG TABLET. PO ×2 (14:00→21:00)
[2018-01-06] MEDS: IV NORMAL SALINE 1000ML BAG 1,000 ML IV (14:11)
[2018-01-06] MEDS: ceFAZolin SODIUM IV Push 1 GM VIAL. IVP ×2 (14:12→20:59)
[2018-01-06] MEDS ORDERED: ceFAZolin SODIUM 1 GM in IV DEXTROSE 5% 50 ML IV (15:00)
[2018-01-06] MEDS: BUPIVACAINE 0.5% 50 ML VIAL. (17:30)
[2018-01-06] MEDS ORDERED: ZOLPIDEM 5 MG TABLET. PO (18:15)
[2018-01-06] MEDS: IPRATRPIUM/ALBUTEROL 0.5/2.5MG 3 ML NEBU. NEB (19:39)
[2018-01-06] MEDS: METOPROLOL TART IMMED RELEASE 50 MG TABLET. PO (20:59)
[2018-01-06] MEDS: CHOLECALCIFEROL (VITAMIN D3) 1,000 UNIT TABLET PO (20:59)
[2018-01-06] MEDS: SENNOSIDES/DOCUSATE 8.6/50MG TABLET. PO (20:59)
[2018-01-06] MEDS: HYDROcodone/APAP 5/325MG 1 TAB TABLET PO (23:10)
[2018-01-07] MEDS: IV NORMAL SALINE 1000ML BAG 1,000 ML IV ×3 (00:30→22:23)
[2018-01-07 04:52] LABS: ADD MAN DIFF? NO
[2018-01-07 05:08] LABS: BASO % 0 % (0-3); EOS % 0 % (0-3); HEMATOCRIT 23.9 % (36.0-47.0); LYMPH # 1.2 x10^3/uL (1.0-4.8); LYMPH % 10 % (24-48); MEAN CORPUSCULAR HEMOGLOBIN 29 pg (25-35); MEAN CORPUSCULAR HGB CONC 34 g/dL (31-37); MEAN CORPUSCULAR VOLUME 86 fL (79-100); MONO % 8 % (0-9); NEUT # 10.4 x10^3uL (1.8-7.7); NEUT % 83 % (31-73); PLATELET COUNT 178 x10^3/uL (140-400); RED CELL DISTRIBUTION WIDTH 17.6 % (11.5-14.5); WHITE BLOOD COUNT 12.6 x10^3/uL (4.0-11.0)
[2018-01-07] MEDS: ceFAZolin SODIUM IV Push 1 GM VIAL. IVP (05:20)
[2018-01-07] MEDS: ACETAMINOPHEN 325 MG TABLET. PO ×3 (05:32→22:00)
[2018-01-07 05:44] LABS: ALBUMIN 2.8 g/dL (3.4-5.0); ALBUMIN/GLOBULIN RATIO 0.8 (1.0-1.7); ALK PHOS 70 U/L (46-116); ALT (SGPT) 9 U/L (14-59); ANION GAP 12 (6-14); AST (SGOT) 16 U/L (15-37); BLOOD UREA NITROGEN 15 mg/dL (7-20); BUN/CREATININE RATIO 13 (6-20); CALCIUM 8.5 mg/dL (8.5-10.1); CARBON DIOXIDE 20 mmol/L (21-32); CHLORIDE 108 mmol/L (98-107); CREATININE 1.2 mg/dL (0.6-1.0); GFR 53.6; GLUCOSE 137 mg/dL (70-99); POTASSIUM 4.1 mmol/L (3.5-5.1); SODIUM 140 mmol/L (136-145); TOTAL BILIRUBIN 0.4 mg/dL (0.2-1.0); TOTAL PROTEIN 6.3 g/dL (6.4-8.2)
[2018-01-07] MEDS ORDERED: PANTOPRAZOLE 40 MG TABLET.DR. PO (07:30)
[2018-01-07] MEDS: PANTOPRAZOLE 40 MG TABLET.DR. PO (08:02)
[2018-01-07] MEDS: amLODIPine BESYLATE 5 MG TABLET PO (08:02)
[2018-01-07] MEDS: MELOXICAM 7.5 MG TABLET PO (08:02)
[2018-01-07] MEDS: METOPROLOL TART IMMED RELEASE 50 MG TABLET. PO ×2 (08:03→20:59)
[2018-01-07] MEDS: ASPIRIN CHEWABLE 81 MG TABLET. PO (08:04)
[2018-01-07] MEDS: LOSARTAN POTASSIUM 50 MG TABLET. PO (08:04)
[2018-01-07] MEDS: CLOPIDOGREL BISULFATE 75 MG TABLET PO (08:04)
[2018-01-07] MEDS: POTASSIUM CHLORIDE 10 MEQ TABLET.ER. PO (08:04)
[2018-01-07] MEDS: SENNOSIDES/DOCUSATE 8.6/50MG TABLET. PO ×2 (08:04→21:00)
[2018-01-07] MEDS: ELECTROLYTE (NON-ICU) PROTOCOL MC (09:00)
[2018-01-07] MEDS: IPRATRPIUM/ALBUTEROL 0.5/2.5MG 3 ML NEBU. NEB ×4 (09:11→19:40)
[2018-01-07 10:02] LABS: ANION GAP 14 (6-14); BLOOD UREA NITROGEN 15 mg/dL (7-20); CALCIUM 8.4 mg/dL (8.5-10.1); CARBON DIOXIDE 20 mmol/L (21-32); CHLORIDE 106 mmol/L (98-107); CREATININE 1.3 mg/dL (0.6-1.0); GFR 48.9; GLUCOSE 144 mg/dL (70-99); MAGNESIUM 1.8 mg/dL (1.8-2.4); PHOSPHORUS 3.6 mg/dL (2.6-4.7); POTASSIUM 3.7 mmol/L (3.5-5.1); SODIUM 140 mmol/L (136-145)
[2018-01-07 13:44] LABS: HEMATOCRIT 24.3 % (36.0-47.0); HEMOGLOBIN 8.1 g/dL (12.0-15.5); MEAN CORPUSCULAR HEMOGLOBIN 29 pg (25-35); MEAN CORPUSCULAR HGB CONC 33 g/dL (31-37); MEAN CORPUSCULAR VOLUME 86 fL (79-100); PLATELET COUNT 174 x10^3/uL (140-400); RED BLOOD COUNT 2.82 x10^6/uL (3.50-5.40); RED CELL DISTRIBUTION WIDTH 18.1 % (11.5-14.5); WHITE BLOOD COUNT 15.9 x10^3/uL (4.0-11.0)
[2018-01-07] MEDS: HYDROcodone/APAP 5/325MG 1 TAB TABLET PO (20:01)
[2018-01-07] MEDS: CHOLECALCIFEROL (VITAMIN D3) 1,000 UNIT TABLET PO (21:02)
[2018-01-08] MEDS: HYDROcodone/APAP 5/325MG 1 TAB TABLET PO (00:13)
[2018-01-08] MEDS: ACETAMINOPHEN 325 MG TABLET. PO (02:25)
[2018-01-08 06:33] LABS: ADD MAN DIFF? NO
[2018-01-08 06:50] LABS: BASO # 0.1 x10^3/uL (0.0-0.2); BASO % 0 % (0-3); EOS % 0 % (0-3); HEMATOCRIT 23.1 % (36.0-47.0); HEMOGLOBIN 7.7 g/dL (12.0-15.5); LYMPH # 2.7 x10^3/uL (1.0-4.8); LYMPH % 18 % (24-48); MEAN CORPUSCULAR HEMOGLOBIN 29 pg (25-35); MEAN CORPUSCULAR HGB CONC 33 g/dL (31-37); MEAN CORPUSCULAR VOLUME 87 fL (79-100); MONO # 1.2 x10^3/uL (0.0-1.1); MONO % 8 % (0-9); NEUT % 74 % (31-73); PLATELET COUNT 157 x10^3/uL (140-400); RED BLOOD COUNT 2.66 x10^6/uL (3.50-5.40); WHITE BLOOD COUNT 14.9 x10^3/uL (4.0-11.0)
[2018-01-08 06:53] LABS: % SAT IRON 7 % (15-34); IRON,SERUM 24 ug/dL (50-170)
[2018-01-08] MEDS: IV NORMAL SALINE 1000ML BAG 1,000 ML IV (07:00)
[2018-01-08 07:20] LABS: ANION GAP 14 (6-14); BLOOD UREA NITROGEN 13 mg/dL (7-20); CALCIUM 8.8 mg/dL (8.5-10.1); CARBON DIOXIDE 18 mmol/L (21-32); CHLORIDE 109 mmol/L (98-107); CREATININE 1.3 mg/dL (0.6-1.0); FERRITIN 33 ng/mL (8-252); GFR 48.9; GLUCOSE 140 mg/dL (70-99); POTASSIUM 3.8 mmol/L (3.5-5.1); SODIUM 141 mmol/L (136-145)
[2018-01-08] MEDS: IPRATRPIUM/ALBUTEROL 0.5/2.5MG 3 ML NEBU. NEB (07:26)
[2018-01-08] MEDS: ASPIRIN CHEWABLE 81 MG TABLET. PO (07:53)
[2018-01-08] MEDS: PANTOPRAZOLE 40 MG TABLET.DR. PO (07:53)
[2018-01-08] MEDS: POTASSIUM CHLORIDE 10 MEQ TABLET.ER. PO (07:54)
[2018-01-08] MEDS: MELOXICAM 7.5 MG TABLET PO (07:54)
[2018-01-08] MEDS: CLOPIDOGREL BISULFATE 75 MG TABLET PO (07:54)
[2018-01-08] MEDS: METOPROLOL TART IMMED RELEASE 50 MG TABLET. PO (07:54)
[2018-01-08] MEDS: LOSARTAN POTASSIUM 50 MG TABLET. PO (07:55)
[2018-01-08] MEDS: amLODIPine BESYLATE 5 MG TABLET PO (07:55)
[2018-01-08] MEDS: SENNOSIDES/DOCUSATE 8.6/50MG TABLET. PO (07:55)
[2018-01-08] MEDS: ELECTROLYTE (NON-ICU) PROTOCOL MC (09:00)
[2018-01-08] MEDS: FERROUS SULFATE 325 MG TABLET. PO (10:36)
[2018-01-09 10:02] LABS: VITAMIN-B12 320 pg/mL (247-911)
[2018-01-09 10:03] LABS: FOLATE 7.45 ng/ml (3.2-20.0)
== END 2018-01-08 12:56 | disposition home or self-care (01) | DRG 269 ==
LOC: OPSVCIP 05:39 → 2 SOUTH 13:28
PROC: 047J3DZ Dilation of Left External Iliac Artery with Intraluminal Device, Percutaneous Approach (ICD-10-PCS; principal; 2018-01-06 07:30)
PROC: 04V03D6 (ICD-10-PCS; 2018-01-06 07:30)
PROC: 04CL3ZZ Extirpation of Matter from Left Femoral Artery, Percutaneous Approach (ICD-10-PCS; 2018-01-06 07:30)
PROC: 04UL3KZ Supplement Left Femoral Artery with Nonautologous Tissue Substitute, Percutaneous Approach (ICD-10-PCS; 2018-01-06 07:30)
DX: I71.4 Abdominal aortic aneurysm, without rupture (principal); I74.5 Embolism and thrombosis of iliac artery; D64.9 Anemia, unspecified; E44.1 Mild protein-calorie malnutrition; I13.10 Hypertensive heart and chronic kidney disease without heart failure, with stage 1 through stage 4 chronic kidney disease, or unspecified chronic kidney disease; J44.9 Chronic obstructive pulmonary disease, unspecified; E61.1 Iron deficiency; E78.5 Hyperlipidemia, unspecified; F17.200 Nicotine dependence, unspecified, uncomplicated; I25.10 Atherosclerotic heart disease of native coronary artery without angina pectoris; I73.9 Peripheral vascular disease, unspecified; K21.9 Gastro-esophageal reflux disease without esophagitis; K57.30 Diverticulosis of large intestine without perforation or abscess without bleeding; F41.9 Anxiety disorder, unspecified; K57.90 Diverticulosis of intestine, part unspecified, without perforation or abscess without bleeding; M85.80 Other specified disorders of bone density and structure, unspecified site; M19.90 Unspecified osteoarthritis, unspecified site; N18.3 Chronic kidney disease, stage 3 (moderate); Z82.49 Family history of ischemic heart disease and other diseases of the circulatory system; Z83.3 Family history of diabetes mellitus; Z95.1 Presence of aortocoronary bypass graft; Z88.6 Allergy status to analgesic agent; Z88.1 Allergy status to other antibiotic agents; Z88.8 Allergy status to other drugs, medicaments and biological substances; Z68.25 Body mass index [BMI] 25.0-25.9, adult
CPT/HCPCS: 36415; 80048; 80053; 82607; 82728; 82746; 83540; 83550; 83735; 84100; 85025; 85027; 85610; 85730; 94640; 94760; A4215; A7015; C1725; C1768; C1769; C1894; J0360; J0690; J0780; J1100; J1644; J2250; J2405; J2704; J2710; J3010; J3490; J7030; J7040; J7120; J7620; Q9966

== ENCOUNTER 2018-01-30 22:52 | Inpatient (IN) | payer MEDICARE ==
[2018-01-30 23:51] LABS: ADD MAN DIFF? NO
[2018-01-30 23:59] LABS: BASO # 0.1 x10^3/uL (0.0-0.2); BASO % 1 % (0-3); EOS # 0.2 x10^3/uL (0.0-0.7); EOS % 3 % (0-3); HEMATOCRIT 27.6 % (36.0-47.0); LYMPH # 2.1 x10^3/uL (1.0-4.8); LYMPH % 24 % (24-48); MEAN CORPUSCULAR HEMOGLOBIN 27 pg (25-35); MEAN CORPUSCULAR HGB CONC 33 g/dL (31-37); MEAN CORPUSCULAR VOLUME 84 fL (79-100); MONO # 0.5 x10^3/uL (0.0-1.1); MONO % 6 % (0-9); NEUT # 5.7 x10^3uL (1.8-7.7); NEUT % 67 % (31-73); PLATELET COUNT 391 x10^3/uL (140-400); RED CELL DISTRIBUTION WIDTH 19.5 % (11.5-14.5); WHITE BLOOD COUNT 8.6 x10^3/uL (4.0-11.0)
[2018-01-31 00:04] LABS: ANION GAP 15 (6-14); BLOOD UREA NITROGEN 15 mg/dL (7-20); BUN/CREATININE RATIO 13 (6-20); CALCIUM 9.3 mg/dL (8.5-10.1); CARBON DIOXIDE 25 mmol/L (21-32); CHLORIDE 103 mmol/L (98-107); CREATININE 1.2 mg/dL (0.6-1.0); GFR 53.6; GLUCOSE 108 mg/dL (70-99); POTASSIUM 3.7 mmol/L (3.5-5.1); SODIUM 143 mmol/L (136-145)
[2018-01-31 00:07] LABS: D-DIMER 3.04 ug/mlFEU (0.00-0.50)
[2018-01-31 00:10] LABS: ALBUMIN 3.2 g/dL (3.4-5.0); ALBUMIN/GLOBULIN RATIO 0.7 (1.0-1.7); ALK PHOS 96 U/L (46-116); ALT (SGPT) 12 U/L (14-59); AST (SGOT) 12 U/L (15-37); TOTAL BILIRUBIN 0.4 mg/dL (0.2-1.0)
[2018-01-31 00:16] LABS: TROPONINI 0.126 ng/mL (0.000-0.055)
[2018-01-31] MEDS ORDERED: CONTRAST GIVEN. MC (01:00)
[2018-01-31] MEDS: IOHEXOL 300 MG/ML 100ML VIAL. IV (01:14)
[2018-01-31 02:29] LABS: TROPONINI 0.129 ng/mL (0.000-0.055)
[2018-01-31] MEDS ORDERED: NITROGLYCERIN SUBLINGUAL 0.4 MG BOTTLE OF 25. SL (03:00)
[2018-01-31 06:42] LABS: TROPONINI 0.139 ng/mL (0.000-0.055)
[2018-01-31] MEDS: DOCUSATE SODIUM 100 MG CAPSULE. PO (09:16)
[2018-01-31] MEDS: ACETAMINOPHEN 325 MG TABLET. PO ×2 (09:16→23:06)
[2018-01-31] MEDS: MAGNESIUM HYDROXIDE 2,400 MG/30 ML ORAL.SUSP. PO (09:16)
[2018-01-31 09:44] LABS: TROPONINI 0.127 ng/mL (0.000-0.055)
[2018-01-31] MEDS: MELOXICAM 7.5 MG TABLET PO (11:00)
[2018-01-31] MEDS: CLOPIDOGREL BISULFATE 75 MG TABLET PO (11:14)
[2018-01-31] MEDS: ASPIRIN CHEWABLE 81 MG TABLET. PO (11:14)
[2018-01-31] MEDS: PANTOPRAZOLE 40 MG TABLET.DR. PO (11:14)
[2018-01-31] MEDS: POTASSIUM CHLORIDE 10 MEQ TABLET.ER. PO (11:15)
[2018-01-31] MEDS: FERROUS SULFATE 325 MG TABLET. PO (11:15)
[2018-01-31] MEDS: amLODIPine BESYLATE 5 MG TABLET PO (11:16)
[2018-01-31] MEDS: LOSARTAN POTASSIUM 50 MG TABLET. PO (11:16)
[2018-01-31] MEDS: METOPROLOL TART IMMED RELEASE 50 MG TABLET. PO ×2 (11:23→20:56)
[2018-01-31] MEDS: CIPROFLOXACIN HCL 250 MG TABLET. PO ×2 (12:29→20:56)
[2018-01-31] MEDS: POLYVINYL ALCOHOL 1.4% OPHTH SOLUTION 15ML BOTTLE. OU (20:55)
[2018-01-31] MEDS: LACTOBACILLUS RHAMNOSUS GG 1 CAPSULE. PO (20:56)
[2018-01-31] MEDS: CHOLECALCIFEROL (VITAMIN D3) 1,000 UNIT TABLET PO (20:56)
[2018-02-01 04:37] LABS: ADD MAN DIFF? NO
[2018-02-01 04:45] LABS: BASO # 0.1 x10^3/uL (0.0-0.2); BASO % 1 % (0-3); EOS # 0.3 x10^3/uL (0.0-0.7); EOS % 4 % (0-3); HEMOGLOBIN 8.3 g/dL (12.0-15.5); LYMPH # 2.6 x10^3/uL (1.0-4.8); LYMPH % 32 % (24-48); MEAN CORPUSCULAR HEMOGLOBIN 28 pg (25-35); MEAN CORPUSCULAR HGB CONC 33 g/dL (31-37); MEAN CORPUSCULAR VOLUME 84 fL (79-100); MONO # 0.6 x10^3/uL (0.0-1.1); MONO % 7 % (0-9); NEUT # 4.6 x10^3uL (1.8-7.7); NEUT % 56 % (31-73); PLATELET COUNT 349 x10^3/uL (140-400); RED BLOOD COUNT 2.98 x10^6/uL (3.50-5.40); RED CELL DISTRIBUTION WIDTH 19.4 % (11.5-14.5); WHITE BLOOD COUNT 8.2 x10^3/uL (4.0-11.0)
[2018-02-01 05:14] LABS: ANION GAP 10 (6-14); BLOOD UREA NITROGEN 14 mg/dL (7-20); CALCIUM 9.2 mg/dL (8.5-10.1); CARBON DIOXIDE 26 mmol/L (21-32); CHLORIDE 102 mmol/L (98-107); CREATININE 1.4 mg/dL (0.6-1.0); GFR 44.9; GLUCOSE 106 mg/dL (70-99); POTASSIUM 3.5 mmol/L (3.5-5.1); SODIUM 138 mmol/L (136-145)
[2018-02-01] MEDS: DOCUSATE SODIUM 100 MG CAPSULE. PO (09:48)
[2018-02-01] MEDS: PANTOPRAZOLE 40 MG TABLET.DR. PO (09:48)
[2018-02-01] MEDS: CIPROFLOXACIN HCL 250 MG TABLET. PO (09:48)
[2018-02-01] MEDS: CLOPIDOGREL BISULFATE 75 MG TABLET PO (09:48)
[2018-02-01] MEDS: ASPIRIN CHEWABLE 81 MG TABLET. PO (09:49)
[2018-02-01] MEDS: LACTOBACILLUS RHAMNOSUS GG 1 CAPSULE. PO (09:49)
[2018-02-01] MEDS: METOPROLOL TART IMMED RELEASE 50 MG TABLET. PO (09:49)
[2018-02-01] MEDS: POTASSIUM CHLORIDE 10 MEQ TABLET.ER. PO (09:49)
[2018-02-01] MEDS: FERROUS SULFATE 325 MG TABLET. PO (09:50)
[2018-02-01] MEDS: amLODIPine BESYLATE 5 MG TABLET PO (09:50)
[2018-02-01] MEDS: LOSARTAN POTASSIUM 50 MG TABLET. PO (09:51)
== END 2018-02-01 11:00 | disposition home or self-care (01) | DRG 313 ==
LOC: 2 SOUTH 01-31 03:03 → ER 22:52
DX: R07.89 Other chest pain (principal); I25.10 Atherosclerotic heart disease of native coronary artery without angina pectoris; G12.9 Spinal muscular atrophy, unspecified; G62.9 Polyneuropathy, unspecified; J44.9 Chronic obstructive pulmonary disease, unspecified; F41.9 Anxiety disorder, unspecified; E78.5 Hyperlipidemia, unspecified; K21.9 Gastro-esophageal reflux disease without esophagitis; M85.80 Other specified disorders of bone density and structure, unspecified site; N18.9 Chronic kidney disease, unspecified; I12.9 Hypertensive chronic kidney disease with stage 1 through stage 4 chronic kidney disease, or unspecified chronic kidney disease; Z95.1 Presence of aortocoronary bypass graft; Z88.8 Allergy status to other drugs, medicaments and biological substances; Z82.49 Family history of ischemic heart disease and other diseases of the circulatory system; K57.90 Diverticulosis of intestine, part unspecified, without perforation or abscess without bleeding; I71.4 Abdominal aortic aneurysm, without rupture
CPT/HCPCS: 36415; 71046; 71275; 74174; 80048; 80053; 84484; 85025; 85379; 93005; 99285; 99285-25; Q9967